=== PATIENT | female | born 1965 | race Caucasian/White ===

== ENCOUNTER 2017-07-20 17:29 | Emergency (ER) | payer BC, SELFPAY ==
--- NOTE | 2017-07-20 17:40 | DI.RAD.S_ITS ---
PROCEDURE: XR ANKLE LT MIN 3V INDICATIONS: slipped and fell, heard a pop, now with swelling and pain. TECHNIQUE: 3 views of the ankle were acquired. COMPARISON: None. FINDINGS: Bones: Oblique distal left fibular fracture which extends to the ankle mortise. There is widening of the medial clear space which measures 6 mm ( lateral clear space measures 4 mm). Soft tissues: No tibiotalar joint effusion. Achilles tendon appears normal. IMPRESSION: Oblique distal left fibular fracture extends the ankle mortise with widening of the medial clear space. Dictated by: Mode Silva M.D. on 07/20/2017 at 18:39 Approved by: Mode Silva M.D. on 07/20/2017 at 18:40
[2017-07-20 17:41] VITALS: BP 124/63; PULSE 95; RESP 20; TEMP 36.8; O2SAT 99
--- NOTE | 2017-07-20 18:04 | ED.LOWEXIN ---
HPI - Extremity Injury (Lower) General Chief Complaint: Extremity Injury, Lower Stated Complaint: SLIPPED AND TWISTED LEFT ANKLE Time Seen by Provider: 07/20/17 18:04 Source: patient Mode of arrival: ambulatory Limitations: no limitations History of Present Illness HPI Narrative: Patient with history of asthma presents to the emergency department with left ankle pain after an inversion injury when she slipped while trying to catch a tadpoles. She heard a snap and now has intense pain with any use. She denies numbness, tingling or weakness. She denies other injury MD complaint: ankle injury Onset (ago): minute(s) Type of Injury: inversion Place: street/outdoors Severity: moderate Relieving factors: immobilization Exacerbating factors: movement Context: fall Associated symptoms: snap/pop sensation and swelling Related Data Previous Rx's Medication Instructions Recorded hydrocodone-acetaminophen 1 tab PO Q4-6H PRN #14 tab 07/20/17 Review of Systems Review of Systems All systems reviewed & are unremarkable except as noted in HPI and below Constitutional Denies chills, Denies fever(s), Denies lethargy and Denies weakness Eyes Denies change in vision, Denies eye discharge, Denies irritation and Denies loss of vision ENT Ears, Nose, Mouth, and Throat: Denies change in voice, Denies neck pain and Denies sore throat Cardiovascular Denies chest pain, Denies irregular heart rhythm, Denies lightheadedness, Denies palpitations, Denies dyspnea, Denies dyspnea on exertion and Denies orthopnea Respiratory Denies cough, Denies dyspnea, Denies dyspnea on exertion and Denies wheezing Gastrointestinal Gastrointestinal: Denies abdominal pain, Denies change in bowel habits, Denies diarrhea, Denies nausea and Denies vomiting Genitourinary Denies hematuria, Denies flank pain, Denies urinary incontinence and Denies urinary urgency Musculoskeletal Reports joint swelling, Reports limited range of motion and Denies neck pain Integumentary/Breasts Denies pruritus, Denies erythema, Denies rash and Denies wounds Neurologic Denies confusion, Denies loss of vision and Denies weakness Psychiatric Denies anxiety, Denies confusion, Denies depression, Denies homicidal ideation and Denies suicidal ideation Endocrine Denies palpitations Hematologic/Lymphatic Denies easy bruising Allergic/Immunologic Denies wheezing [facility] Medical History Asthma (Acute) Exam Initial Vital Signs Initial Vital Signs: Vital Signs Temperature 98.3 F 07/20/17 17:41 Pulse Rate 95 H 07/20/17 17:41 Respiratory Rate 20 07/20/17 17:41 Blood Pressure 124/63 H 07/20/17 17:41 Pulse Oximetry 99 07/20/17 17:41 Procedures Orthopedic Splinting/Casting Injury #1: Side: left Lower Extremity Immobilizer: posterior splint and stirrup splint Other Orthopedic Equipment: crutches Course Orders Ordered: ED Orders 07/20/17 17:40 XR ankle LT min 3V Stat Discontinued Medications Hydrocodone Bitart/Acetaminophen (Vicodin Prepack) 1 bottle MISC SEEINSTR ONE Stop: 07/20/17 18:35 Last Admin: 07/20/17 19:52 Dose: 1 bottle Consultations Consultation #1: Patient lives in [place] and would prefer to follow up there. Call to [facility] and contact info for on-call orthopedics, Dr. Jarquin obtained. I have discussed this with him and he agrees with our plan of posterior and sugar-tong with nonweightbearing, crutches and follow up Vital Signs - 8 hr 07/20/17 17:41 07/20/17 20:04 Temperature 98.3 F Pulse Rate 95 H 94 H Respiratory Rate 20 16 Blood Pressure 124/63 H 121/77 H Pulse Oximetry 99 100 Discharge Plan Departure Patient Disposition: Home, Self-Care Clinical Impression: Fracture of distal end of fibula Discharge Date/Time: 07/20/17 20:11 Interventions: ED Discharge Assessment Last Done: 07/20/17 20:04 Instructions: DI for Ankle Fracture Activity Restrictions/Additional Instructions: *You have been diagnosed with [ left ankle fracture ] *What to do: NON WEIGHT BEARING *Take medications as directed *Follow up with Dr. Alvarez of [facility]. Call his office Saturday morning *Return to ER if you should have any new, worsening or concerning symptoms Dr. Luis Angel Jarquin of [facility] will contact you on Saturday. If you don't hear from him or his office by late afternoon please call [phone] Prescriptions: New hydrocodone-acetaminophen 5-325 mg tablet 1 tab PO Q4-6H PRN (Reason: pain) Qty: 14 RF: 0 Referrals: Juve Alvarez MD [Physician] -
--- NOTE | 2017-07-20 18:54 | ED_ITS ---
HPI - Extremity Injury (Lower) General Chief Complaint: Extremity Injury, Lower Stated Complaint: SLIPPED AND TWISTED LEFT ANKLE Time Seen by Provider: 07/20/17 18:04 Source: patient Mode of arrival: ambulatory Limitations: no limitations History of Present Illness HPI Narrative: Patient with history of asthma presents to the emergency department with left ankle pain after an inversion injury when she slipped while trying to catch a tadpoles. She heard a snap and now has intense pain with any use. She denies numbness, tingling or weakness. She denies other injury MD complaint: ankle injury Onset (ago): minute(s) Type of Injury: inversion Place: street/outdoors Severity: moderate Relieving factors: immobilization Exacerbating factors: movement Context: fall Associated symptoms: snap/pop sensation and swelling Related Data Previous Rx's Medication Instructions Recorded hydrocodone-acetaminophen 1 tab PO Q4-6H PRN #14 tab 07/20/17 Review of Systems Review of Systems All systems reviewed & are unremarkable except as noted in HPI and below Constitutional Denies chills, Denies fever(s), Denies lethargy and Denies weakness Eyes Denies change in vision, Denies eye discharge, Denies irritation and Denies loss of vision ENT Ears, Nose, Mouth, and Throat: Denies change in voice, Denies neck pain and Denies sore throat Cardiovascular Denies chest pain, Denies irregular heart rhythm, Denies lightheadedness, Denies palpitations, Denies dyspnea, Denies dyspnea on exertion and Denies orthopnea Respiratory Denies cough, Denies dyspnea, Denies dyspnea on exertion and Denies wheezing Gastrointestinal Gastrointestinal: Denies abdominal pain, Denies change in bowel habits, Denies diarrhea, Denies nausea and Denies vomiting Genitourinary Denies hematuria, Denies flank pain, Denies urinary incontinence and Denies urinary urgency Musculoskeletal Reports joint swelling, Reports limited range of motion and Denies neck pain Integumentary/Breasts Denies pruritus, Denies erythema, Denies rash and Denies wounds Neurologic Denies confusion, Denies loss of vision and Denies weakness Psychiatric Denies anxiety, Denies confusion, Denies depression, Denies homicidal ideation and Denies suicidal ideation Endocrine Denies palpitations Hematologic/Lymphatic Denies easy bruising Allergic/Immunologic Denies wheezing [facility] Medical History Asthma (Acute) Exam Initial Vital Signs Initial Vital Signs: Vital Signs Temperature 98.3 F 07/20/17 17:41 Pulse Rate 95 H 07/20/17 17:41 Respiratory Rate 20 07/20/17 17:41 Blood Pressure 124/63 H 07/20/17 17:41 Pulse Oximetry 99 07/20/17 17:41 Procedures Orthopedic Splinting/Casting Injury #1: Side: left Lower Extremity Immobilizer: posterior splint and stirrup splint Other Orthopedic Equipment: crutches Course Orders Ordered: ED Orders 07/20/17 17:40 XR ankle LT min 3V Stat Discontinued Medications Hydrocodone Bitart/Acetaminophen (Vicodin Prepack) 1 bottle MISC SEEINSTR ONE Stop: 07/20/17 18:35 Last Admin: 07/20/17 19:52 Dose: 1 bottle Consultations Consultation #1: Patient lives in [place] and would prefer to follow up there. Call to [facility] and contact info for on-call orthopedics, Dr. Jarquin obtained. I have discussed this with him and he agrees with our plan of posterior and sugar-tong with nonweightbearing, crutches and follow up Vital Signs - 8 hr 07/20/17 17:41 07/20/17 20:04 Temperature 98.3 F Pulse Rate 95 H 94 H Respiratory Rate 20 16 Blood Pressure 124/63 H 121/77 H Pulse Oximetry 99 100 Discharge Plan Departure Patient Disposition: Home, Self-Care Clinical Impression: Fracture of distal end of fibula Discharge Date/Time: 07/20/17 20:11 Interventions: ED Discharge Assessment Last Done: 07/20/17 20:04 Instructions: DI for Ankle Fracture Activity Restrictions/Additional Instructions: *You have been diagnosed with [ left ankle fracture ] *What to do: NON WEIGHT BEARING *Take medications as directed *Follow up with Dr. Alvarez of [facility]. Call his office Saturday morning *Return to ER if you should have any new, worsening or concerning symptoms Dr. Luis Angel Jarquin of [facility] will contact you on Saturday. If you don 't hear from him or his office by late afternoon please call [phone] Prescriptions: New hydrocodone-acetaminophen 5-325 mg tablet 1 tab PO Q4-6H PRN (Reason: pain) Qty: 14 RF: 0 Referrals: Juve Alvarez MD [Physician] -
--- NOTE | 2017-07-20 18:59 | PC.NURSE ---
posterior and stir up splint applied , tolerated well. dr ortiz at [facility]. +dcms intact post application
[2017-07-20] MEDS: HYDROCODONE/ACET 5/325 PREPACK 1 BOTTLE MISC (19:52)
[2017-07-20 20:04] VITALS: BP 121/77; PULSE 94; RESP 16; O2SAT 100
== END 2017-07-20 20:11 | disposition home or self-care (01) ==
PROVIDERS: Emergency Provider Emergency Medicine
DX: S82.832A Other fracture of upper and lower end of left fibula, initial encounter for closed fracture (principal); W18.41XA Slipping, tripping and stumbling without falling due to stepping on object, initial encounter
CPT/HCPCS: 29515; 73610; 99283